=== PATIENT | female | born 1975 | race African-American/Black ===

== ENCOUNTER 2020-10-22 10:46 | Outpatient (REF) | payer MEDICAID, SELFPAY ==
[2020-10-22 11:47] LABS: COVID-19 Test Negative (Negative)
== END 2020-10-22 10:47 | disposition home or self-care (01) ==
LOC: HO.LAB 10:46
PROVIDERS: PCP Nurse Practitioner; Visit Provider Internal Medicine
DX: Z20.822 Contact with and (suspected) exposure to COVID-19 (principal)
CPT/HCPCS: 36415; 87635; C9803

== ENCOUNTER 2021-01-21 19:08 | Emergency (ER) | payer OTHER, MEDICAID, SELFPAY ==
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
[2021-01-21 21:32] VITALS: BP 126/87; PULSE 87; RESP 20; TEMP 35.7; O2SAT 99; BMI 21.7
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
[2021-01-22 00:32] VITALS: BP 109/52; PULSE 60; RESP 18; TEMP 36.6; O2SAT 99
[2021-01-22 00:40] VITALS: BP 141/87; PULSE 88; RESP 18; TEMP 36.6; O2SAT 98
== END 2021-01-22 01:17 | disposition home or self-care (01) ==
PROVIDERS: Emergency Provider Emergency Medicine
DX: S39.012A Strain of muscle, fascia and tendon of lower back, initial encounter (principal); S16.1XXA Strain of muscle, fascia and tendon at neck level, initial encounter; V43.52XA Car driver injured in collision with other type car in traffic accident, initial encounter; Y93.9 Activity, unspecified; Y92.410 Unspecified street and highway as the place of occurrence of the external cause; Y99.9 Unspecified external cause status; Z79.899 Other long term (current) drug therapy
CPT/HCPCS: 72040; 72100; 99283